=== PATIENT | female | born 1990 | race Caucasian/White ===

== ENCOUNTER 2016-11-19 18:05 | Outpatient (CLI) | payer BC, OTHER | END 2016-11-19 19:48 | disposition home or self-care (01) | LOC: GENOP 18:05 | DX: O36.8130 Decreased fetal movements, third trimester, not applicable or unspecified (principal); Z3A.32 32 weeks gestation of pregnancy | CPT/HCPCS: 59025; 81001; 82731 ==

== ENCOUNTER → 2016-12-19 | Outpatient (CLI) | payer BC, OTHER ==
[2016-12-19 13:49] LABS: HEMOGLOBIN 10.5 gm/dl (12.3-15.3); RED BLOOD COUNT 4.04 M/UL (4.00-5.10); WHITE BLOOD COUNT 8.3 K/UL (4.5-11.0)
== END ==
LOC: GENOP 13:03
PROVIDERS: Obstetrics & Gynecology
DX: I10 Essential (primary) hypertension (principal)
CPT/HCPCS: 36415; 81001; 85025; J7120

== ENCOUNTER 2016-12-20 07:18 | Inpatient (IN) | payer BC, OTHER ==
[~2016-12-20] VITALS: Ht 160 cm; Wt 83.0 kg
== END 2016-12-22 14:00 | disposition home or self-care (01) | DRG 766 ==
LOC: OB 07:18
PROVIDERS: ADMIT Obstetrics & Gynecology
PROC: 10D00Z1 Extraction of Products of Conception, Low, Open Approach (ICD-10-PCS; principal; 2016-12-20 09:30)
PROC: 3E0234Z Introduction of Serum, Toxoid and Vaccine into Muscle, Percutaneous Approach (ICD-10-PCS; 2016-12-21)
PROC: 3E0234Z Introduction of Serum, Toxoid and Vaccine into Muscle, Percutaneous Approach (ICD-10-PCS; 2016-12-22)
DX: O34.211 Maternal care for low transverse scar from previous cesarean delivery (principal); N85.8 Other specified noninflammatory disorders of uterus; Z3A.37 37 weeks gestation of pregnancy; Z37.0 Single live birth; O99.013 Anemia complicating pregnancy, third trimester; O26.893 Other specified pregnancy related conditions, third trimester; R12 Heartburn; Z23 Encounter for immunization
CPT/HCPCS: 36415; 82800; 85014; 85018; 90707; 90715; C9113; J1580; J1885; J2274; J2370; J2590; J2765; J3430; J7120